=== PATIENT | male | born 1985 | race Two or more races ===

== ENCOUNTER 2017-10-17 23:51 | Emergency (ER) | payer OTHER ==
[~2017-10-17] VITALS: Ht 175.3 cm; Wt 90.7 kg
[2017-10-18] MEDS ORDERED: ORPHENADRINE C100 MG PO (03:24)
[2017-10-18] MEDS ORDERED: KETO10TA2 PO (03:24)
== END 2017-10-18 03:44 | disposition home or self-care (01) ==
LOC: ER 23:51
DX: M62.838 Other muscle spasm (principal)

== ENCOUNTER 2018-08-28 20:19 | Emergency (ER) | payer OTHER ==
[~2018-08-28] VITALS: Ht 175.3 cm; Wt 90.7 kg
[~2018-08-28 20:19] MED LIST: KETO10TA2 PO; ORPHENADRINE C100 MG PO
== END 2018-08-28 22:48 | disposition home or self-care (01) ==
LOC: ER 20:19
DX: S40.011A Contusion of right shoulder, initial encounter (principal); W18.39XA Other fall on same level, initial encounter; Y93.89 Activity, other specified; Y92.098 Other place in other non-institutional residence as the place of occurrence of the external cause; Y99.8 Other external cause status

== ENCOUNTER → 2019-04-14 | Emergency (ER) | payer OTHER ==
[~2019-04-14] VITALS: Ht 172.7 cm; Wt 45.4 kg
== END | disposition home or self-care (01) ==
LOC: ER 09:55
DX: S90.111A Contusion of right great toe without damage to nail, initial encounter (principal); W18.09XA Striking against other object with subsequent fall, initial encounter; Y93.89 Activity, other specified; Y92.89 Other specified places as the place of occurrence of the external cause; Y99.8 Other external cause status

== ENCOUNTER → 2021-05-14 | Emergency (ER) | payer OTHER | END | disposition left against medical advice (07) | LOC: ER 06:12 | DX: Z53.21 Procedure and treatment not carried out due to patient leaving prior to being seen by health care provider (principal) ==

== ENCOUNTER 2022-05-23 10:27 | Emergency (ER) | payer OTHER ==
[~2022-05-23] VITALS: Ht 175.3 cm; Wt 111.1 kg
[2022-05-23] MEDS ORDERED: TUSSIN DM SYRU118 ML PO (13:45)
[2022-05-23] MEDS ORDERED: ZITHROMAX TRI-500 MG PO (13:45)
== END 2022-05-23 13:51 | disposition home or self-care (01) ==
LOC: ER 10:27
DX: B34.9 Viral infection, unspecified (principal); Z20.822 Contact with and (suspected) exposure to COVID-19

== ENCOUNTER 2022-09-13 09:35 | Emergency (ER) | payer OTHER ==
[~2022-09-13] VITALS: Ht 172.7 cm; Wt 99.8 kg
[~2022-09-13 09:35] MED LIST changes: +TUSSIN DM SYRU118 ML PO; +ZITHROMAX TRI-500 MG PO
[2022-09-13] MEDS ORDERED: NORFLEX100MG PO (12:16)
[2022-09-13] MEDS ORDERED: DICLOFENAC POTA50 MG PO (12:16)
== END 2022-09-13 12:37 | disposition home or self-care (01) ==
LOC: ER 09:35
DX: R07.89 Other chest pain (principal)

== ENCOUNTER 2023-10-24 07:32 | Emergency (ER) | payer OTHER ==
[~2023-10-24] VITALS: Ht 175.3 cm; Wt 113.4 kg
[~2023-10-24 07:32] MED LIST changes: +DICLOFENAC POTA50 MG PO; +NORFLEX100MG PO
[2023-10-24] MEDS ORDERED: ORPHENADRINE CITRATE 30 MG/ML AMPUL IM ONE (08:45)
[2023-10-24] MEDS ORDERED: KETOROLAC TROMETHAMINE 60 MG VIAL IM ONE ×2 (08:45→09:27)
[2023-10-24] MEDS ORDERED: KETO10TA2 PO (08:51)
[2023-10-24] MEDS ORDERED: NORFLEX100MG PO (08:51)
[2023-10-24] MEDS ORDERED: ORPHENADRINE CITRATE 30 MG/ML AMPUL ONE (09:27)
== END 2023-10-24 10:28 | disposition home or self-care (01) ==
LOC: ER 07:33
DX: M54.9 Dorsalgia, unspecified (principal); M62.830 Muscle spasm of back

== ENCOUNTER 2024-03-02 06:38 | Emergency (ER) | payer OTHER ==
[~2024-03-02] VITALS: Ht 175.3 cm; Wt 104.3 kg
[2024-03-02] MEDS ORDERED: KETOROLAC TROMETHAMINE 30 MG VIAL IM STA (08:53)
[2024-03-02] MEDS ORDERED: ORPHENADRINE CITRATE 30 MG/ML AMPUL IM STA (08:53)
== END 2024-03-02 11:34 | disposition home or self-care (01) ==
LOC: ER 06:40
DX: S30.0XXA Contusion of lower back and pelvis, initial encounter (principal); W18.39XA Other fall on same level, initial encounter; Y93.89 Activity, other specified; Y92.018 Other place in single-family (private) house as the place of occurrence of the external cause; Y99.9 Unspecified external cause status

== ENCOUNTER 2025-01-13 10:11 | Emergency (ER) | payer OTHER ==
[~2025-01-13] VITALS: Ht 165.1 cm; Wt 124.7 kg
[2025-01-13] MEDS ORDERED: TETRACAINE HCL 20 DR/ML DROPS OP ONE (11:15)
[2025-01-13] MEDS ORDERED: CETIRIZINE HCL 10 MG TABLET PO ONE (11:15)
[2025-01-13] MEDS ORDERED: CETIRIZINE HCL 5MG/5ML BLIST.PACK PO ONE (12:22)
[2025-01-13 12:42] LABS: BASO % 0.5 % (0.1-1.2); EOS # 0.38 (0.04-0.54); EOS % 4.3 % (0.7-7.0); LYMPH # 1.44 (1.18-3.74); LYMPH % 16.4 % (19.3-53.1); MEAN PLATELET VOLUME 9.80 fl (9.4-12.4); MONO # 0.76 (0.24-0.82); MONO % 8.6 % (4.7-12.5); NEUT # 6.15 (1.56-6.13); NEUT % 69.9 % (34.0-71.1); RED CELL DISTRIBUTION WIDTH 14.3 % (11.6-14.4)
[2025-01-13 14:24] LABS: COVID-19 AG NEGATIVE (NEGATIVE)
[2025-01-13] MEDS ORDERED: ALL DAY ALLERGY10 M3 PO (14:50)
[2025-01-13] MEDS ORDERED: POLYMYXIN B/TMP10 ML OP (14:50)
[2025-01-13 15:12] VITALS: BP 145/86; O2SAT 99
== END 2025-01-13 15:15 | disposition home or self-care (01) ==
LOC: ER 10:11
PROVIDERS: Student in an Organized Health Care Education/Training Program
DX: H10.9 Unspecified conjunctivitis (principal); B96.89 Other specified bacterial agents as the cause of diseases classified elsewhere; Z20.822 Contact with and (suspected) exposure to COVID-19